=== PATIENT | female | born 1945 | race Two or more races ===

== ENCOUNTER 2024-02-20 05:40 | Day surgery (SDC) | payer OTHER ==
[2024-02-18 11:38] VITALS: BP 150/80
[~2024-02-20 05:40] MED LIST: CARDURA1 MG PO; COZAAR100 MG PO; HYDRODIURIL12.5 MG PO; LEXAPRO5 MG PO; NORVASC5 MG PO
[2024-02-20] MEDS ORDERED: CEFAZOLIN SODIUM 1,000 MG VIAL ONE (08:09)
[2024-02-20] MEDS ORDERED: CHLORHEXIDINE GLUCONATE 120 ML BOTTLE TOP ONE (08:09)
[2024-02-20] MEDS ORDERED: CEFAZOLIN SODIUM 1,000 MG VIAL IV ONE (13:30)
[2024-02-20] MEDS ORDERED: MORPHINE SULFATE 4 MG/ML VIAL IV ONE (15:50)
== END 2024-02-20 18:00 | disposition home or self-care (01) ==
LOC: CIR.AMB 05:40
PROVIDERS: ATTEND Surgery
DX: C50.511 Malignant neoplasm of lower-outer quadrant of right female breast (principal); N60.81 Other benign mammary dysplasias of right breast; R59.0 Localized enlarged lymph nodes; I10 Essential (primary) hypertension; R00.1 Bradycardia, unspecified
CPT/HCPCS: 19301; 38525; A9541